=== PATIENT | female | born 1975 | race Hispanic/Latino ===

== ENCOUNTER → 2024-06-17 | Day surgery (SDC) | payer OTHER ==
[~2024-06-17] MED LIST: ACETAMINOPHEN 1000 MG/100 ML 100 ML IV ONE; COLLAGEN 15001 EACH PO; DEXAMETHASONE SOD PHOS INJ 4 MG/ML SDV ONE; FAMOTIDINE 20 MG/2 ML VIAL IV ONE; FENTANYL CITRATE/PF 100MCG/2 ML INJ ONE; FOLIC ACID-VIT1 EACH PO; KETOROLAC TROMETHAMINE 30 MG/ML VIAL ONE; LIDOCAINE HCL 2% LOCAL INJ 5 ML SDV VIAL INJ ONE; ONDANSETRON HCL INJ 2MG/ML 2ML 2 MG/ML VIAL ONE; PROPOFOL IV EMULSION 10 MG/ML 20 ML VIAL ONE; SEVOFLURANE INHAL SOLN 250 ML PEN BTL ONE; VENLAFAXINE HCL75 MG PO
[2024-06-17] MEDS: LACTATED RINGER'S 1,000 ML ONE (07:56)
[2024-06-17 10:25] VITALS: TEMP 97.4
[2024-06-17 10:50] VITALS: BP 114/79; PULSE 67; RESP 18; O2SAT 99
== END | disposition home or self-care (01) ==
LOC: OR 07:21 → EDSTATUS 13:00
PROVIDERS: ATTEND Specialist
DX: M65.312 Trigger thumb, left thumb (principal); R00.1 Bradycardia, unspecified; Z01.810 Encounter for preprocedural cardiovascular examination; E78.00 Pure hypercholesterolemia, unspecified; F41.9 Anxiety disorder, unspecified
CPT/HCPCS: 26055; 81025; 93005; J0131; J0690; J1100; J1885; J2003; J2405; J2704; J3010; J7121; J1308

== ENCOUNTER → 2024-11-19 | Day surgery (SDC) | payer BC, OTHER ==
[~2024-11-19] MED LIST changes: +EPHEDRINE SULFATE INJ 50 MG/ML VIAL ONE; -FAMOTIDINE 20 MG/2 ML VIAL IV ONE; -KETOROLAC TROMETHAMINE 30 MG/ML VIAL ONE; +MIDAZOLAM HCL 2 MG/2 ML VIAL ONE
[2024-11-19] MEDS: LACTATED RINGER'S 1,000 ML ONE (06:21)
[2024-11-19 08:00] VITALS: TEMP 98
[2024-11-19] MEDS: FENTANYL CITRATE/PF 100MCG/2 ML INJ ONE (08:20)
[2024-11-19] MEDS: KETOROLAC TROMETHAMINE 30 MG/ML VIAL ONE (08:30)
[2024-11-19] MEDS: ACETAMINOPHEN/CODEINE 300MG - 30MG TAB ONE (08:40)
[2024-11-19 09:00] VITALS: BP 119/69; PULSE 60; RESP 16; O2SAT 96
== END | disposition home or self-care (01) ==
LOC: OR 05:38
PROVIDERS: ATTEND Specialist
DX: G56.01 Carpal tunnel syndrome, right upper limb (principal); E78.00 Pure hypercholesterolemia, unspecified; F41.9 Anxiety disorder, unspecified; Z79.899 Other long term (current) drug therapy; Z01.810 Encounter for preprocedural cardiovascular examination
CPT/HCPCS: 29848; 93005; J0131; J0690; J1100; J1885; J2003; J2250; J2405; J2704; J3010; J7121